=== PATIENT | female | born 1980 | race African-American/Black ===

== ENCOUNTER 2023-03-04 12:40 | Inpatient (IN) | payer MEDICAID, SELFPAY ==
[~2023-03-04 12:40] MED LIST: Iopamidol-370 76% 500 ML MDV (1 ML CHARGE) ONE
[2023-03-04 13:20] LABS: #Monocytes 0.2 thou/uL (0.11-0.59); #Neutrophils 3.7 thou/uL (1.40-6.50); %Basophils 0.2 % (0.0-1.0); %Eosinophils 0.9 % (0.0-10.0); %Lymphocytes 9.2 % (21.0-51.0); %Monocytes 5.2 % (0.0-10.0); %Neutrophils 83.8 % (42.0-75.0); Hemoglobin 5.4 g/dL (12.0-16.0); Mean Corpuscular HGB CONC 28.4 g/dL (32.0-36.0); Mean Corpuscular Hemoglobin 24.7 pg (27.0-31.0); Mean Corpuscular Volume 86.8 fl (78.0-98.0); Platelet Count 312 10x3/uL (130-400); RBC Distribution Width 16.4 % (11.5-14.5); Red Blood Cell (RBC) Count 2.19 mill/uL (4.20-5.40); White Blood Cell (WBC) Count 4.4 10x3/uL (4.8-10.8)
[2023-03-04 13:24] LABS: Critical Call w/ Read Back NUR.AD10@1324
[2023-03-04 13:47] LABS: ALT (SGPT) Less than 7 U/L (8-55); AST (SGOT) 8 U/L (5-34); Albumin 3.9 g/dL (3.5-5.0); Alkaline Phosphatase 59 U/L (40-110); Anion Gap 11 mmol/L (10-20); BHCG - Serum Negative (NEGATIVE); BUN (Urea Nitrogen) 16 mg/dL (7.0-18.7); Bilirubin, Total 0.2 mg/dL (0.2-1.2); Calc. Creatinine Clearance 0 mL/min (70-130); Calcium 9.1 mg/dL (7.8-10.44); Carbon Dioxide 28 mmol/L (22-29); Chloride 106 mmol/L (98-107); Estimated GFR 49; Globulin 3.4 g/dL (2.4-3.5); Glucose 90 mg/dL (70-105); Lipase 24 U/L (8-78); Potassium 3.7 mmol/L (3.5-5.1); Pregs Control Background? CLEAR/WHITE (CLR/WHITE); Pregs Control Bar Appear? YES (CONTROL BAR); Protein, Total 7.3 g/dL (6.0-8.3); Sodium 141 mmol/L (136-145)
[2023-03-04 13:49] LABS: CellaVision Operator ID LAB.KB; Hypochromia SLIGHT = 6-15 cells HPF (0-5); Ovalocytes SLIGHT = 2-5 cells HPF (0-1); Platelet Adequacy Comment Platelets Normal; Polychromasia SLIGHT = 2-3 cells HPF (0-2); Tear Drops SLIGHT = 2-5 cells HPF (0-1)
[2023-03-04] MEDS ORDERED: Ondansetron PF 4 MG/2 ML Vial IVP PRN (15:00)
[2023-03-04] MEDS ORDERED: HYDROcodone/Acetaminophen 5/325 mg Tablet PO PRN (15:00)
[2023-03-04 16:15] LABS: Bacteria/HPF None Seen HPF (None Seen); Bilirubin Negative (Negative); Blood, Urine Negative (Negative); CAUTI Indications for Culture Dysuria,urgency,freq; Clarity Clear (Clear); Glucose, Urine (Dipstick) Normal (Negative); Ketone, Urine Negative (Negative); Leukocyte 75 Leu/uL (Negative); Nitrite Negative (Negative); Protein, Urine (Dipstick) Negative (Neg-Trace); RBC/HPF 0-3 HPF (0-3); Specific Gravity, Urine 1.036 (1.002-1.036); Squamous Epithelial None Seen HPF (0-3); Urobilinogen Normal mg/dL (Less than 2)
[2023-03-04 16:19] LABS: Urine Culture Reflex No No
[2023-03-04 19:44] VITALS: BMI 28.6
[2023-03-04] MEDS: Lactated Ringer's 1,000 ML IV SCH (20:05)
[2023-03-04] MEDS ORDERED: hydrALAZINE 20 MG/ML VIAL SLOW IVP PRN (20:38)
[2023-03-04] MEDS ORDERED: Morphine 4 MG/ML VIAL SLOW IVP PRN (20:38)
[2023-03-04] MEDS: Senokot S 8.6-50 MG TAB PO SCH (21:00)
[2023-03-04] MEDS: Famotidine 20 MG TAB PO SCH (21:00)
[2023-03-05] MEDS ORDERED: hydrALAZINE 20 MG/ML VIAL SLOW IVP PRN (02:48)
[2023-03-05] MEDS ORDERED: Mag-Al 1200 mg/1200 mg/30 ML UDCUP PO SCH (03:00)
[2023-03-05] MEDS: oxyCODONE/Acetaminophen 5 mg/325 mg Tablet PO PRN ×2 (03:19→15:30)
[2023-03-05 05:52] LABS: #Monocytes 0.6 thou/uL (0.11-0.59); %Basophils 0.2 % (0.0-1.0); %Eosinophils 0.1 % (0.0-10.0); %Lymphocytes 3.9 % (21.0-51.0); %Monocytes 7.5 % (0.0-10.0); %Neutrophils 87.8 % (42.0-75.0); Hematocrit 25.6 % (36.0-47.0); Mean Corpuscular HGB CONC 31.3 g/dL (32.0-36.0); Mean Corpuscular Hemoglobin 26.9 pg (27.0-31.0); Mean Corpuscular Volume 86.2 fl (78.0-98.0); Platelet Count 254 10x3/uL (130-400); RBC Distribution Width 15.4 % (11.5-14.5); Red Blood Cell (RBC) Count 2.97 mill/uL (4.20-5.40)
[2023-03-05 06:46] LABS: Anion Gap 10 mmol/L (10-20); BUN (Urea Nitrogen) 12 mg/dL (7.0-18.7); Calc. Creatinine Clearance 70 mL/min (70-130); Calcium 8.8 mg/dL (7.8-10.44); Carbon Dioxide 26 mmol/L (22-29); Chloride 106 mmol/L (98-107); Estimated GFR 63; Glucose 92 mg/dL (70-105); Potassium 3.4 mmol/L (3.5-5.1); Sodium 139 mmol/L (136-145)
[2023-03-05] MEDS ORDERED: Potassium Chloride 20 MEQ TAB PO SCH (08:30)
[2023-03-05] MEDS: Famotidine 20 MG TAB PO SCH ×2 (09:42→20:15)
[2023-03-05] MEDS: Senokot S 8.6-50 MG TAB PO SCH ×2 (09:42→20:15)
[2023-03-05] MEDS ORDERED: Sodium Bicarbonate 0.5 MEQ/ML SDV 10 ML ONE (11:48)
[2023-03-05] MEDS ORDERED: Iopamidol 100 ML FS ONE (11:48)
[2023-03-05] MEDS ORDERED: Lidocaine 1% PF 5 ML VIAL ONE ×2 (11:48→14:13)
[2023-03-05] MEDS ORDERED: cefTRIAXone\\ROCEPHIN 1 GM in Sodium Chloride 0.9% 100 ML IVPB SCH (13:45)
[2023-03-05] MEDS ORDERED: Midazolam HCl 2 mg/2 ml Vial ONE (13:46)
[2023-03-05] MEDS ORDERED: fentaNYL 50 mcg/mL 1 mL Vial ONE (13:46)
[2023-03-05] MEDS: Lactated Ringer's 1,000 ML IV SCH (15:31)
[2023-03-05] MEDS: GoLYTELY 4,000 ml Bottle PO SCH (20:12)
[2023-03-06] MEDS: Acetaminophen 325 MG TAB PO PRN (01:15)
[2023-03-06] MEDS: GoLYTELY 4,000 ml Bottle PO SCH (01:16)
[2023-03-06 05:50] LABS: #Monocytes 0.4 thou/uL (0.11-0.59); #Neutrophils 4.3 thou/uL (1.40-6.50); %Basophils 0.4 % (0.0-1.0); %Eosinophils 0.8 % (0.0-10.0); %Lymphocytes 8.7 % (21.0-51.0); %Monocytes 7.2 % (0.0-10.0); %Neutrophils 82.5 % (42.0-75.0); Hematocrit 23.6 % (36.0-47.0); Hemoglobin 7.5 g/dL (12.0-16.0); Mean Corpuscular HGB CONC 31.8 g/dL (32.0-36.0); Mean Corpuscular Hemoglobin 27.5 pg (27.0-31.0); Mean Corpuscular Volume 86.4 fl (78.0-98.0); Mean Platelet Volume 9.2 fL (7.4-10.4); Platelet Count 269 10x3/uL (130-400); RBC Distribution Width 15.8 % (11.5-14.5); Red Blood Cell (RBC) Count 2.73 mill/uL (4.20-5.40); White Blood Cell (WBC) Count 5.2 10x3/uL (4.8-10.8)
[2023-03-06 06:18] LABS: Anion Gap 14 mmol/L (10-20); BUN (Urea Nitrogen) 13 mg/dL (7.0-18.7); Calc. Creatinine Clearance 77 mL/min (70-130); Calcium 8.9 mg/dL (7.8-10.44); Carbon Dioxide 26 mmol/L (22-29); Chloride 101 mmol/L (98-107); Estimated GFR 70; Glucose 87 mg/dL (70-105); Potassium 4.1 mmol/L (3.5-5.1); Sodium 137 mmol/L (136-145)
[2023-03-06] MEDS: Famotidine 20 MG TAB PO SCH ×2 (08:23→20:44)
[2023-03-06] MEDS: Senokot S 8.6-50 MG TAB PO SCH ×2 (08:39→20:44)
[2023-03-06] MEDS: Lactated Ringer's 1,000 ML IV SCH (10:54)
[2023-03-06] MEDS: oxyCODONE/Acetaminophen 5 mg/325 mg Tablet PO PRN ×2 (15:40→23:50)
[2023-03-06] MEDS ORDERED: GoLYTELY 4,000 ml Bottle PO SCH (18:00)
[2023-03-07 05:07] LABS: #Eosinphils 0.1 thou/uL (0.0-0.7); #Monocytes 0.4 thou/uL (0.11-0.59); #Neutrophils 3.6 thou/uL (1.40-6.50); %Basophils 0.7 % (0.0-1.0); %Eosinophils 1.3 % (0.0-10.0); %Lymphocytes 9.8 % (21.0-51.0); %Monocytes 9.3 % (0.0-10.0); %Neutrophils 78.5 % (42.0-75.0); Hematocrit 27.3 % (36.0-47.0); Hemoglobin 8.4 g/dL (12.0-16.0); Mean Corpuscular HGB CONC 30.8 g/dL (32.0-36.0); Mean Corpuscular Hemoglobin 26.5 pg (27.0-31.0); Mean Corpuscular Volume 86.1 fl (78.0-98.0); Platelet Count 278 10x3/uL (130-400); RBC Distribution Width 15.7 % (11.5-14.5); Red Blood Cell (RBC) Count 3.17 mill/uL (4.20-5.40); White Blood Cell (WBC) Count 4.6 10x3/uL (4.8-10.8)
[2023-03-07 05:26] LABS: Anion Gap 15 mmol/L (10-20); BUN (Urea Nitrogen) 11 mg/dL (7.0-18.7); Calc. Creatinine Clearance 74 mL/min (70-130); Calcium 8.9 mg/dL (7.8-10.44); Carbon Dioxide 25 mmol/L (22-29); Chloride 100 mmol/L (98-107); Estimated GFR 66; Glucose 78 mg/dL (70-105); Potassium 3.8 mmol/L (3.5-5.1); Sodium 136 mmol/L (136-145)
[2023-03-07] MEDS: Lactated Ringer's 1,000 ML IV SCH (05:40)
[2023-03-07] MEDS ORDERED: PROPOFOL 20 ML ONE ×3 (07:57→08:35)
[2023-03-07] MEDS ORDERED: Lidocaine 1% PF 5 ML VIAL ONE (07:57)
[2023-03-07] MEDS ORDERED: Promethazine HCl 25 MG/ML VIAL IM PRN (09:07)
[2023-03-07] MEDS ORDERED: Ondansetron HCl/PF 4 MG/2 ML Vial IVP PRN (09:07)
[2023-03-07] MEDS: Famotidine 20 MG TAB PO SCH ×2 (10:04→21:09)
[2023-03-07] MEDS: Senokot S 8.6-50 MG TAB PO SCH ×2 (10:04→22:54)
[2023-03-07] MEDS: Acetaminophen 325 MG TAB PO PRN (15:39)
[2023-03-07] MEDS ORDERED: BSS Opth Solution 15ml BOT EA EYE SCH (17:15)
[2023-03-07] MEDS ORDERED: Polyvinyl Alcohol 1.4%/Povidone 0.6% Opth Drops EA EYE SCH (18:00)
[2023-03-07] MEDS ORDERED: FLU VACC QS2023-24(6MOS UP)/PF 60 MCG/0.5 ML SYRINGE IM ONE (20:00)
[2023-03-07] MEDS ORDERED: Mag-Al 1200 mg/1200 mg/30 ML UDCUP PO PRN (21:09)
[2023-03-08] MEDS: oxyCODONE/Acetaminophen 5 mg/325 mg Tablet PO PRN ×2 (03:08→18:24)
[2023-03-08 04:37] LABS: #Eosinphils 0.1 thou/uL (0.0-0.7); #Monocytes 0.4 thou/uL (0.11-0.59); %Basophils 0.2 % (0.0-1.0); %Eosinophils 0.9 % (0.0-10.0); %Lymphocytes 7.5 % (21.0-51.0); %Monocytes 6.3 % (0.0-10.0); %Neutrophils 84.8 % (42.0-75.0); Hematocrit 25.8 % (36.0-47.0); Hemoglobin 8.1 g/dL (12.0-16.0); Mean Corpuscular HGB CONC 31.4 g/dL (32.0-36.0); Mean Corpuscular Hemoglobin 27.1 pg (27.0-31.0); Mean Corpuscular Volume 86.3 fl (78.0-98.0); Mean Platelet Volume 9.6 fL (7.4-10.4); Platelet Count 333 10x3/uL (130-400); RBC Distribution Width 15.5 % (11.5-14.5); Red Blood Cell (RBC) Count 2.99 mill/uL (4.20-5.40); White Blood Cell (WBC) Count 5.8 10x3/uL (4.8-10.8)
[2023-03-08 04:58] LABS: Anion Gap 15 mmol/L (10-20); BUN (Urea Nitrogen) 12 mg/dL (7.0-18.7); Calc. Creatinine Clearance 67 mL/min (70-130); Calcium 8.8 mg/dL (7.8-10.44); Carbon Dioxide 25 mmol/L (22-29); Chloride 101 mmol/L (98-107); Estimated GFR 59; Glucose 94 mg/dL (70-105); Potassium 3.8 mmol/L (3.5-5.1); Sodium 137 mmol/L (136-145)
[2023-03-08] MEDS: Senokot S 8.6-50 MG TAB PO SCH ×2 (10:23→20:12)
[2023-03-08] MEDS: Polyethylene Glycol 3350 17 GM Packet PO SCH (10:23)
[2023-03-08] MEDS ORDERED: Artificial Tear Sol 15 ML BOT EA EYE PRN (10:56)
[2023-03-08] MEDS: Lactated Ringer's 1,000 ML IV SCH (11:43)
[2023-03-09 05:00] LABS: #Eosinphils 0.1 thou/uL (0.0-0.7); #Monocytes 0.4 thou/uL (0.11-0.59); #Neutrophils 2.6 thou/uL (1.40-6.50); %Basophils 0.3 % (0.0-1.0); %Eosinophils 2.5 % (0.0-10.0); %Lymphocytes 14.5 % (21.0-51.0); %Monocytes 11.2 % (0.0-10.0); %Neutrophils 70.7 % (42.0-75.0); Hematocrit 27.9 % (36.0-47.0); Hemoglobin 8.6 g/dL (12.0-16.0); Mean Corpuscular HGB CONC 30.8 g/dL (32.0-36.0); Mean Corpuscular Hemoglobin 27.1 pg (27.0-31.0); Mean Platelet Volume 8.8 fL (7.4-10.4); Platelet Count 286 10x3/uL (130-400); RBC Distribution Width 15.5 % (11.5-14.5); Red Blood Cell (RBC) Count 3.17 mill/uL (4.20-5.40); White Blood Cell (WBC) Count 3.7 10x3/uL (4.8-10.8)
[2023-03-09] MEDS: Lactated Ringer's 1,000 ML IV SCH (05:10)
[2023-03-09 05:36] LABS: Anion Gap 12 mmol/L (10-20); BUN (Urea Nitrogen) 14 mg/dL (7.0-18.7); Calc. Creatinine Clearance 58 mL/min (70-130); Calcium 8.9 mg/dL (7.8-10.44); Carbon Dioxide 26 mmol/L (22-29); Chloride 103 mmol/L (98-107); Estimated GFR 50; Glucose 94 mg/dL (70-105); Potassium 3.9 mmol/L (3.5-5.1); Sodium 137 mmol/L (136-145)
[2023-03-09] MEDS: Polyethylene Glycol 3350 17 GM Packet PO SCH (08:44)
[2023-03-09] MEDS: Senokot S 8.6-50 MG TAB PO SCH (08:44)
[2023-03-09] MEDS: oxyCODONE/Acetaminophen 5 mg/325 mg Tablet PO PRN (11:55)
[2023-03-09 15:02] VITALS: BP 123/59; TEMP 98.7
== END 2023-03-09 13:38 | disposition home or self-care (01) | DRG 923 ==
LOC: ERS 12:40 → 2NO 17:22
PROVIDERS: ADMIT Hospitalist; ATTEND Family Medicine
PROC: 30233N1 Transfusion of Nonautologous Red Blood Cells into Peripheral Vein, Percutaneous Approach (ICD-10-PCS; 2023-03-04)
PROC: 0T9030Z Drainage of Right Kidney with Drainage Device, Percutaneous Approach (ICD-10-PCS; principal; 2023-03-05)
PROC: 0DJ08ZZ Inspection of Upper Intestinal Tract, Via Natural or Artificial Opening Endoscopic (ICD-10-PCS; 2023-03-07)
PROC: 0DBQ8ZX Excision of Anus, Via Natural or Artificial Opening Endoscopic, Diagnostic (ICD-10-PCS; 2023-03-07)
DX: T66.XXXA Radiation sickness, unspecified, initial encounter (principal); D62 Acute posthemorrhagic anemia; N13.1 Hydronephrosis with ureteral stricture, not elsewhere classified; N17.9 Acute kidney failure, unspecified; K51.30 Ulcerative (chronic) rectosigmoiditis without complications; K92.1 Melena; K63.89 Other specified diseases of intestine; N32.89 Other specified disorders of bladder; Z98.891 History of uterine scar from previous surgery; Z92.3 Personal history of irradiation; Z92.21 Personal history of antineoplastic chemotherapy; Z85.41 Personal history of malignant neoplasm of cervix uteri
CPT/HCPCS: 36415; 36430; 50430; 50432; 74177; 74485; 76942; 80048; 80053; 82274; 83605; 83690; 83735; 84703; 85025; 86850; 86870; 86900; 86901; 86922; 88305; 88341; 88342; C1729; J2250; J2270; J2704; J3010; J7120; P9016; Q9967